=== PATIENT | male | born 2000 | race Caucasian/White ===

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

== ENCOUNTER → 2024-05-31 | Outpatient (CLI) | payer BC ==
--- NOTE | 2024-05-31 12:44 | XR ---
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 Frontal lateral and bilateral obliques and coned in L5-S1 views of the lumbar spine. FINDINGS: The osseous structures show normal alignment without evidence of an acute fracture. No significant ve rtebral body osteophytes or facet joint arthropathy. The intervertebral disk spaces are preserved. Pe dicles are intact. Soft tissues are within normal limits. The odontoid appears intact. IMPRESSION: 1. No fracture or dislocation. 2. No significant degeneration changes throughout the cervical or lumbar spine. [facility], , 05/31/2024 12:42 PM
== END | disposition home or self-care (01) ==
LOC: RADXRYALE 12:08
PROVIDERS: ATTEND Internal Medicine
DX: M54.51 Vertebrogenic low back pain (principal); M54.2 Cervicalgia
CPT/HCPCS: 72050; 72110